=== PATIENT | female | born 1955 | race Caucasian/White ===

== ENCOUNTER 2021-02-16 07:29 | Outpatient (REF) | payer MEDICARE, OTHER, SELFPAY ==
[2021-02-16 07:43] LABS: MANUAL DIFF FLAG NO
[2021-02-16 07:58] LABS: Hematocrit 42.2 % (37-47); Hemoglobin 14.1 g/dl (12.0-16.0); Lymphocytes Absolute Auto 1.2 X10*3/uL (1.2-4.9); Lymphocytes Percent Auto 29.3 % (20-40); Mean Corpuscular HGB Conc 33.4 g/dl (31.0-35.0); Mean Corpuscular Hemoglobin 30.1 pg (27.0-33.0); Mean Corpuscular Volume 90.2 fL (80-98); Mean Platelet Volume 8.7 fL (9.4-12.3); Monocytes Absolute Auto 0.4 X10*3/uL (0.1-1.2); Monocytes Percent Auto 10.3 % (2-11); Neutrophils Absolute Auto 2.4 X10*3/uL (2.0-8.3); Neutrophils Percent Auto 58.4 % (45-73); Platelet Count 337 X10*3/uL (160-400); Red Blood Count 4.68 X10*6/uL (4.20-5.50); White Blood Count 4.2 X10*3/uL (4.8-10.8)
[2021-02-16 08:22] LABS: Anion Gap 11 (12-20); Blood Urea Nitrogen 13 mg/dL (9-16); Calcium 9.5 mg/dL (8.4-10.2); Carbon Dioxide 27 mmol/L (22-29); Chloride 106 mmol/L (96-108); Cholesterol 222 mg/dL; Estimated Glomerular Filt Rate > 60; Glucose Fasting 102 mg/dL (60-99); HDL Cholesterol 85 mg/dL; LDL Cholesterol Calculated 126 mg/dl; Sodium 140 mmol/L (135-145); Triglycerides 57 mg/dL
[2021-02-16 08:43] LABS: Thyroid Stimulating Hormone 2.09 uIU/mL (0.32-4.0)
== END 2021-02-16 07:30 | disposition home or self-care (01) ==
LOC: HO.LAB 07:29
PROVIDERS: PCP Internal Medicine; Visit Provider Internal Medicine
DX: Z00.00 Encounter for general adult medical examination without abnormal findings (principal)
CPT/HCPCS: 36415; 80048; 80061; 84443; 85025

== ENCOUNTER 2025-01-04 07:58 | Outpatient (REF) | payer MEDICARE, OTHER, SELFPAY ==
--- OUTSIDE RECORDS SUMMARY | 2025-01-04 08:03 | XMS_ITS | Patient Health Record ---
Author Organization [facility] Address [address] [place] [address] Care Team Providers Care Commercial Or Institutional Cleaner Name Role Phone Diane MEYER, Adam Primary Care Provider Dom Claudio Unavailable [phone] Reason For Referral No Information Plan Of Treatment No Information Insurance Providers Payer Name Payer Address Payer Phone Subscriber Number Group Number Insured Name Patient Relationship to Insured Coverage Start Date Coverage End Date MEDICARE OF [place] [address] [place] [address] [id number] DAWNA HAYWOOD Self - patient is the insured [facility] [address] [place] [address] [id number] HAYWOODJEREMYDAWNA Self - patient is the insured Medical (General) History Medical History History ICD Code colonoscopy 06-06-2006 colon polyps history of an anal fissure Denies NM,DM,CVA,Lung disease,renal dise ase Surgical History Surgery Date(Month/Year) ear surgery
[2025-01-04 08:48] LABS: Hematocrit 42.6 % (37.0-47.0); Hemoglobin 14.1 g/dl (12.0-16.0); Mean Corpuscular HGB Conc 33.1 g/dl (31.0-35.0); Mean Corpuscular Hemoglobin 29.1 pg (27.0-33.0); Mean Corpuscular Volume 87.8 fL (80.0-98.0); NRBC Abs Auto 0.000 X10*3/uL (0.0-0.012); NRBC Pct Auto 0.0 /100WBC (0.0-0.2); Platelet Count 313 X10*3/uL (160-400); Red Blood Count 4.85 X10*6/uL (4.20-5.50); White Blood Count 4.5 X10*3/uL (4.8-10.8)
[2025-01-04 08:49] LABS: Hemoglobin A1C 142.2630 umol/L; Total Hemoglobin (HGBA1C) 3699.0592 umol/L
[2025-01-04 09:27] LABS: Alanine Aminotransferase 17 U/L (0-31); Albumin Level 4.7 g/dL (3.5-5.0); Alkaline Phosphatase 48 U/L (39-117); Anion Gap 14 (12-20); Aspartate Amino Transferase 25 U/L (5-31); Blood Urea Nitrogen 14 mg/dL (9-16); Calcium 9.2 mg/dL (8.4-10.2); Carbon Dioxide 24 mmol/L (22-29); Chloride 108 mmol/L (96-108); Cholesterol 239 mg/dL (<200); Estimated Glomerular Filt Rate > 60; HDL Cholesterol 79 mg/dL (>40); Potassium 4.1 mmol/L (3.3-5.1); Sodium 142 mmol/L (135-145); Total Protein 7.7 g/dL (6.5-8.0); Triglycerides 61 mg/dL (<150)
== END 2025-01-04 07:59 | disposition home or self-care (01) ==
LOC: HO.LAB 07:58
PROVIDERS: PCP Physician Assistant; Visit Provider Physician Assistant
DX: R73.01 Impaired fasting glucose (principal); E78.9 Disorder of lipoprotein metabolism, unspecified
CPT/HCPCS: 36415; 80053; 80061; 83036; 85027

== ENCOUNTER 2025-01-18 12:44 | Outpatient (AMB) | payer MEDICARE, OTHER, SELFPAY ==
--- NOTE | 2025-01-18 12:47 | A.OFFPC_ITS ---
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 Transferring care from Dr Contreras. Medical records have been requested and have received. Silk Screen Printing Racker Required: No Tablet Technician: Present Accompanied by: Spouse Allergies No Known Allergies Allergy (Verified 01/18/25 13:07) Medication List - Last Reconciled 01/18/25 by Mario Harrison PA-C No Known Home Meds Tobacco use date assessed: 01/18/25 Fall risk assessment: No Falls in past year Last assessed Fall Risk: 01/18/25 Dental Screening Dental Screen Date: 01/18/25 Did you have a dental visit in the last 12 months?: Yes Did you have a dental problem in the last 6 months where you did not have access to dental care?: No Was dental information given to patient?: Patient has dentist 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 Previous PCP is Dr. Contreras though was not seen since 2019. The patient has a history of borderline high cholesterol, with recent lab results showing a cholesterol level of 239 mg/dL, which is considered borderline high. She has been advised to modify her diet to manage cholesterol levels. Borderline hyperlipidemia: The patient also has borderline diabetes, with a fasting blood sugar of 91 mg/dL and an A1c of 5.7%, indicating a pre-diabetic state. She has been advised to monitor her sugar intake, particularly from candies. Memory impairment: There are concerns about memory impairment, although the patient does not report significant issues herself. Family members have expressed concern about her losing her train of thought , decreased interest and engagement. PLAN: referral to a neurologist for further evaluation, including a brain MRI, has been planned. Former smoker: The patient has a history of smoking but quit over two years ago. She has not reported any withdrawal symptoms or significant changes since quitting. Hearing impairment is noted in one ear, and she has been receiving annual ear cleanings from an ENT specialist. Laboratory Tests 01/04/25 08:16 RBC 4.85 Creatinine 0.90 Cholesterol 239 H LDL Cholesterol, C alc 148 H PFSH Surgical History Sebaceous cyst of eyelid History of tonsillectomy History of ear surgery Family History Father Esophageal cancer Mother Lung cancer Social History Housing: House Alcohol intake: never Patient Tobacco Use Status: Never used Tobacco Years Smoked: 30+ e-Cigarette/Vaping Use: Never Used Second Hand Smoke Exposure: No service: No Current occupational status: retired Cognitive needs: No Hearing needs: No Vision needs: Yes (Glasses) Questionnaire PHQ-9 Over the last 2 weeks, how often have you been bothered by any of the following problems? 1. Little interest or pleasure in doing things: not at all 2. Feeling down, depressed, or hopeless: not at all 3. Trouble falling or staying asleep, or sleeping too much: not at all 4. Feeling tired or having little energy: not at all 5. Poor appetite or overeating: not at all 6. Feeling bad about yourself - or that you are a failure or have let yourself or your family down: not at all 7. Trouble concentrating on things, such as reading the newspaper or watching television: not at all 8. Moving or speaking so slowly that other people could have noticed. Or the opposite - being so fidgety or restless that you have been moving around a lot more than usual: not at all 9. Thoughts that you would be better off or of hurting yourself in some way: not at all Total score: 0 Depression Screening Interpretation: Negative Depression Screening Done: Yes 73099 - PHQ-9 Billing: Yes Source: Developed by Drs. Dom Sepulveda, Pilar Horne, Rohit Goncalves and colleagues, with an educational nolvia from [employer]. Thrive Questionnaire Date Thrive assessed: 01/18/25 I am a: Patient What is your living situation today?: I have a steady place to live Within the past 12 months, did the food you bought not last and you didn't have the money to get more?: Never true Within the past 12 months, did you worry whether your food would run out before you got money to buy more?: Never true Do you have trouble paying for medicines?: No Do you have trouble getting transportation to medical appointments?: No Do you have trouble paying your heating and electricity bill?: No Do you have trouble taking care of your child, family member or friend?: No Do you have trouble with day-to-day activities such as bathing, preparing meals, shopping, managing finances, etc.?: No Are you currently unemployed and looking for a job?: No Are you interested in more education?: No Please select the resources that you would like help with: None Currently or been in a relationship where the following occur: No concerns reported THRIVE Score: 0 AUDIT C Alcohol Use Questionnaire (AUDIT-C) 1. How often do you have a drink containing alcohol?: Never Total Score: 0 BRENDA-7 AMB Questionnaire BRENDA-7 Date BRENDA - 7 assessed: 01/18/25 Feeling nervous, anxious, or on edge: 0 = Not at all Not being able to stop or control worryin = Not at all Worrying too much about different things: 0 = Not at all Trouble relaxin = Not at all Being so restless that it is hard to sit still: 0 = Not at all Becoming easily annoyed or irritable: 0 = Not at all Feeling afraid as if something awful might happen: 0 = Not at all Total BRENDA-7 score (0-4 normal; 5-9 mild; 10-14 moderate; 15-21 severe): 0 Source: Developed by Drs. Dom Sepulveda, Pilar Horne, Rohit Goncalves and colleagues, with an educational nolvia from [employer]. BRENDA-7 Assessment Billing BRENDA-7 Assessment Tool: BRENDA-7 Assessment 37254 Review of Systems Const Denies headache(s) Eyes Denies loss of vision ENT Denies vertigo, Denies dizziness, Denies headache(s) and Denies sore throat Card Denies chest pain, Denies leg edema and Denies lightheadedness Resp Denies cough, Denies hemoptysis and Denies wheezing GI Denies abdominal pain, Denies melena, Denies constipation, Denies diarrhea and Denies vomiting Denies urinary frequency, Denies dysuria and Denies urinary urgency Musc Denies arthralgias, Denies joint swelling, Denies numbness and Denies tingling Neuro Denies Abnormal speech present, Denies behavioral changes, Denies vertigo, Denies dizziness, Denies headache(s), Denies loss of vision, Denies memory loss, Denies numbness and Denies tingling Psych Denies anxiety, Denies behavioral changes, Denies depression, Denies memory loss and Denies panic attacks Clay/Lymph Denies easy bleeding and Denies easy bruising Aller/Immun Denies wheezing Physical exam (Primary Care) Vital Signs: Last Vital Signs Temp 97.5 F 01/18/25 12:50 Pulse 67 01/18/25 12:50 BP 120/66 01/18/25 12:50 Pulse Ox 99 01/18/25 12:50 Oxygen Delivery Method Room Air 01/18/25 12:50 BMI result Body Mass Index 21.3 Tobacco/Smoking Status: Tobacco use Status Tobacco use date assessed 01/18/25 01/18/25 12:59 Patient Tobacco Use Status Never used Tobacco 01/18/25 12:59 e-Cigarette/Vaping Use Never Used 01/18/25 12:59 PHQ-9: PHQ-9 Score PHQ-9: Total score 0 01/18/25 13:41 Depression Screening Interpretation: Negative Thrive Assessment: Date of Thrive Assessment Date Thrive assessed 01/18/25 01/18/25 12:59 Currently or been in a relationship where the following occur: No concerns reported Const General: healthy appearing, no acute distress, alert and awake Nutritional Appearance: well nourished Orientation/consciousness: oriented to person and oriented to place HENMT Ears: TM's normal bilaterally General nose exam: Normal nasal mucous membranes and turbinates present Eyes Conjunctivae: conjunctivae normal Sclerae: sclerae normal Pupils: Equal, round and reactive pupils present Neck Neck: Yes no lymphadenopathy and Yes no JVD Thyroid: Thyroid normal Carotids: no bruits Resp Effort & Inspection: normal respiratory effort and not tachypneic Auscultation: no crackles, no rales, no rhonchi and no wheezes Cardio Rate: regular rate Rhythm: regular rhythm Heart sounds: no murmurs and normal S1 and S2 GI Palpation (GI): Soft to palpation, nontender, no hepatomegaly and no splenomegaly Auscultation: normal bowel sounds Skin General skin exam: no rashes or lesions noted and dry skin Neuro General: oriented to person and oriented to place Cranial nerves: Yes Equal, round and reactive pupils present Speech: No Abnormal speech present Gait exam (Neuro): Normal gait present Motor exam (neuro): no tremor noted Extrem Right upper extremity: full ROM Left upper extremity: full ROM Right lower extremity: full ROM; no edema Left lower extremity: full ROM; no edema Psych Mental Status: mental status grossly normal Speech and movement: Normal speech and movement present Affect: normal affect Attitude: cooperative Thought process: Normal thought process present Immunizations pneumoc 20-elle conj-dip cr(PF) 0.5 mL IM syringe Performing Provider: Mario Harrison PA-C [facility] Administered by: EL Harvey on 01/18/25 13:39 Dose Route Admin Location Dispensed Lot Number Expiration Date ND Orthopedic Assistant 0.5 mL IM Left Deltoid 0.5 mL [id number] 01/10/26 [employer] Total Dispensed Waste 0.5 mL 0 % VIS Given Date VIS Provided VIS Publication Date 01/18/25 Single Vaccine 24 Eligibility Eligibility Date Funding Source Not [facility] Eligible 01/18/25 Private Coding Level of Care Code New Pt Level 4 (70340) Diagnoses Memory deficit R41.3 Former smoker Z87.891 Borderline high cholesterol E78.9 Elevated fasting blood sugar R73.01 Additional Codes BRENDA-7 Assessment Billing - BRENDA-7 Assessment Tool: BRENDA-7 Assessment 22103 ([id number]) PHQ-9 - 49989 - PHQ-9 Billing: Yes ([id number]) Assessment & Plan Assessment & Plan (1) Memory deficit: Code(s): R41.3 - Other amnesia Category: Medical Plan: A referral to a neurologist has been made for further evaluation of memory concerns, including a brain MRI to start workup. Patient is alert to person and place though not time. We did discuss the possibility of a dementia diagnosis and possibly starting Aricept though has been would like to hold off on starting medication until talking with the neurologist. (2) Former smoker: Code(s): Z87.891 - Personal history of nicotine dependence Category: Social Hx Plan: Patient is a former smoker, quit 3-4 years ago. She was smoking more than 50 years. Her former smoking history could be contributing to now her memory impairment ? vascular dementia picture We did discuss with family the lung cancer screening program though will hold off on this for now (3) Borderline high cholesterol: Code(s): E78.9 - Disorder of lipoprotein metabolism, unspecified Category: Medical Plan: The patient has been advised to modify her diet to manage her borderline high cholesterol, which was measured at 239 mg/dL. Dietary changes include reducing intake of fried and fatty foods. (4) Elevated fasting blood sugar: Code(s): R73.01 - Impaired fasting glucose Category: Medical Plan: The patient has been advised to monitor her sugar intake, particularly from candies, to manage her borderline diabetes, indicated by an A1c of 5.7%. Orders: Orders MM screening mammo BI 01/18/25 Z12.31 - Encounter for screening mammogram for malignant neoplasm of breast MR head/brain wo con 01/18/25 R41.3 - Other amnesia Pneumococcal 20 Immunization 01/18/25 R41.3 - Other amnesia, Z23 - Encounter for immunization Referrals Neurology Referral R41.3 - Other amnesia
[2025-01-18 12:50] VITALS: BP 120/66; PULSE 67; TEMP 36.4; O2SAT 99; BMI 21.3
--- OUTSIDE RECORDS SUMMARY | 2025-01-18 15:01 | XMS_ITS | Patient Health Record ---
Author Organization [facility] Address [address] [place] [address] Care Team Providers Care Combat Control Manager Name Role Phone Diane MEYER, Adam Primary Care Provider Dom Claudio Unavailable [phone] Reason For Referral No Information Plan Of Treatment No Information Insurance Providers Payer Name Payer Address Payer Phone Subscriber Number Group Number Insured Name Patient Relationship to Insured Coverage Start Date Coverage End Date MEDICARE OF [place] [address] [place] [address] [id number] DAWNA HAYWOOD Self - patient is the insured [facility] [address] [place] [address] [id number] HAYWOOD, DAWNA Self - patient is the insured Medical (General) History Medical History History ICD Code colonoscopy 06-06-2006 colon polyps history of an anal fissure Denies [place],DM,CVA,Lung disease,renal dise ase Surgical History Surgery Date(Month/Year) ear surgery
== END 2025-01-18 13:41 | disposition home or self-care (01) ==
PROVIDERS: PCP Physician Assistant; Visit Provider Physician Assistant
DX: R41.3 Other amnesia (principal); Z87.891 Personal history of nicotine dependence; E78.9 Disorder of lipoprotein metabolism, unspecified; R73.01 Impaired fasting glucose

== ENCOUNTER → 2025-01-18 12:44 | Outpatient (BNVA) | payer MEDICARE, OTHER, SELFPAY | PROVIDERS: PCP Physician Assistant; Visit Provider Physician Assistant | DX: R73.01 Impaired fasting glucose (principal); R41.3 Other amnesia; E78.9 Disorder of lipoprotein metabolism, unspecified; Z23 Encounter for immunization; Z87.891 Personal history of nicotine dependence | CPT/HCPCS: 90471; 90677; 96127; 99202 ==

== ENCOUNTER 2025-02-05 09:34 | Outpatient (REF) | payer MEDICARE, OTHER, SELFPAY ==
--- NOTE | ~2025-02-05 | MR_ITS ---
CLINICAL HISTORY: R41.3 - Other amnesia MR Brain without gadolinium Comparison: None provided Findings: No restricted diffusion. No intra-axial mass or hemorrhage. There is a 6.5 mm lesion in the right parietal white matter which demonstrates restricted diffusion. A small acute white matter infarct is not excluded. T2 weighted hyperintensities are seen in the periventricular and subcortical white matter most consistent with microvascular ischemia. No midline shift. No hydrocephalus. Vascular flow voids are intact. The orbits are normal. There is right-sided mastoiditis. No focal bone lesion. IMPRESSION: 1. Tiny focus of restricted diffusion in the right parietal white matter could represent a small acute infarct. 2. Microvascular changes. 3. Right-sided mastoiditis This document has been electronically signed by: Price Sharp MD on 02/05/2025 11:04:37
--- OUTSIDE RECORDS SUMMARY | 2025-02-05 09:39 | XMS_ITS | Patient Health Record ---
Author Organization [facility] Address [address] [place] [address] Care Team Providers Care Charge Histotechnologist Name Role Phone Diane MEYER, Adam Primary Care Provider Dom Claudio Unavailable [phone] Reason For Referral No Information Plan Of Treatment No Information Insurance Providers Payer Name Payer Address Payer Phone Subscriber Number Group Number Insured Name Patient Relationship to Insured Coverage Start Date Coverage End Date MEDICARE OF [place] [address] [place] [address] [id number] DAWNA HAYWOOD Self - patient is the insured [facility] [address] [place] [address] [id number] HAYWOODJEREMYDAWNA Self - patient is the insured Medical (General) History Medical History History ICD Code colonoscopy 06-06-2006 colon polyps history of an anal fissure Denies [place],DM,CVA,Lung disease,renal dise ase Surgical History Surgery Date(Month/Year) ear surgery
== END 2025-02-05 09:35 | disposition home or self-care (01) ==
LOC: HO.MRI 09:34
PROVIDERS: PCP Physician Assistant; Visit Provider Physician Assistant
DX: R41.3 Other amnesia (principal)
CPT/HCPCS: 70551

== ENCOUNTER 2025-03-03 13:46 | Outpatient (REF) | payer MEDICARE, OTHER, SELFPAY ==
--- NOTE | ~2025-03-03 | CT_ITS ---
EXAMINATION: CT HEAD WITHOUT CONTRAST CLINICAL INFORMATION: I63.9 - Cerebral infarction, unspecified COMPARISON: MRI February 05, 2025 TECHNIQUE: Contiguous axial imaging was performed from the skull base to vertex without intravenous administration of contrast. This CT examination was performed using dose optimization techniques as appropriate, variously including the following: *Automated exposure control *Adjustment of mA and/or kV according to patient size (this includes techniques or standardized protocols for targeted exams where dose is matched to indication/reason for exam; i.e. extremities or head) *Use of iterative reconstruction technique FINDINGS: There is no acute ischemic change. Multifocal periventricular hypodensities are present. There is no intracranial hemorrhage. There is no mass-effect or midline shift. Basal cisterns and ventricles are within normal limits for age/cerebral volume. Orbits are symmetrical and unremarkable. Paranasal sinuses and mastoid air cells are pneumatized. There are no bony abnormalities. CT/CT head/brain wo IV con IMPRESSION: No acute intracranial abnormality. Previously demonstrated acute infarct in the right posterior cerebellum and right parietal white matter is not clearly demonstrated on CT. Electronically signed by: Pedro Mendoza MD 03/03/2025 02:45 PM EDT
--- OUTSIDE RECORDS SUMMARY | 2025-03-03 17:41 | XMS_ITS | Patient Health Record ---
Author Organization [facility] Address [address] [place] [address] Care Team Providers Care Silver Solution Mixer Name Role Phone Diane MEYER, Adam Primary Care Provider Dom Claudio Unavailable [phone] Reason For Referral No Information Plan Of Treatment No Information Insurance Providers Payer Name Payer Address Payer Phone Subscriber Number Group Number Insured Name Patient Relationship to Insured Coverage Start Date Coverage End Date MEDICARE OF [place] [address] [facility] [place] [address] [id number] DAWNA HAYWOOD Self - patient is the insured [facility] [address] [place] [address] [id number] HAYWOODJEREMYDAWNA Self - patient is the insured Medical (General) History Medical History History ICD Code colonoscopy 06-06-2006 colon polyps history of an anal fissure Denies [place],DM,CVA,Lung disease,renal dise ase Surgical History Surgery Date(Month/Year) ear surgery
== END 2025-03-03 13:47 | disposition home or self-care (01) ==
LOC: HO.CT 13:46
PROVIDERS: PCP Physician Assistant; Visit Provider Physician Assistant
DX: I63.9 Cerebral infarction, unspecified (principal)
CPT/HCPCS: 70450

== ENCOUNTER → 2025-03-03 13:48 | Outpatient (BNV) | payer MEDICARE, OTHER, SELFPAY | PROVIDERS: PCP Physician Assistant; Visit Provider Radiology Diagnostic Radiology | DX: I63.9 Cerebral infarction, unspecified (principal) | CPT/HCPCS: 70450 ==

== ENCOUNTER 2025-03-30 11:14 | Outpatient (AMB) | payer MEDICARE, OTHER, SELFPAY ==
--- NOTE | 2025-03-30 11:15 | MHC.OFFVIS ---
Vital Signs 03/30/25 11:16 Height 5 ft 3.78 in Weight 124 lb 2 oz BMI 21.5 BP 128/80 Blood Pressure Location Rt brachial Position Sitting Pulse 73 Pulse Source Pulse Oximeter Pulse Oximetry (%) 98 Oxygen Delivery Method Room Air Intake Visit Reasons: INP - Amnesia Intake Note: Amnesia Weatherization Technician Required: No Accompanied by: Spouse Allergies No Known Allergies Allergy (Verified 03/30/25 11:16) HPI Comments Details: 69 y/o Female comes for evaluation of memory issues.Patient feels she is doing good -Noticed short term memory difficulties, difficulty comprehending sometimes, emotional, irritable . mood swings for past 1 year .she misplaces things around the house, frequently repeats herself, stopped using check books ( used to be very good at that ). stopped cooking , stopped taking care of the house, stopped driving many years ago. she requests her to do all the chores and shadows him . No hallucinations No fh/o dementia No head injury No fh/o dementia she has anxiety for past 1 year. [facility] Medical History (Updated 03/30/25 @ 11:46 by Genia Bernal MD) Primary progressive nonfluent aphasia Surgical History Sebaceous cyst of eyelid History of tonsillectomy History of ear surgery Family History Father Esophageal cancer Mother Lung cancer Social History Housing: House Alcohol intake: never Patient Tobacco Use Status: Never used Tobacco Years Smoked: 30+ e-Cigarette/Vaping Use: Never Used Second Hand Smoke Exposure: No service: No Current occupational status: retired Cognitive needs: No Hearing needs: No Vision needs: Yes (Glasses) Physical Exam Vital Signs: Last Vital Signs Pulse 73 03/30/25 11:16 BP 128/80 03/30/25 11:16 Pulse Ox 98 03/30/25 11:16 Oxygen Delivery Method Room Air 03/30/25 11:16 BMI result Body Mass Index 21.5 Orientation What is the (year) (season) (date) (day) (month)?: season Where are we (state) (county) (town or city) (hospital) (floor)?: state and hospital/clinic Registration Name of 3 unrelated objects clearly and slowly, then ask patient to repeat all 3 of them. (1st repeat determines score. Make sure they can repeat all three): object 1, object 2 and object 3 Language Ask the patient to 'take a piece of paper with their right hand' 'fold paper in half' 'place paper on floor': take paper in right hand, fold paper in half and place paper on floor Give patient a blank piece of paper & ask to write a sentence. Score if it contains a noun & verb.: sentence contains subject and verb Score Score: 10 Results Reviewed Results Reviewed: MRI Brain - 01/2025Tiny focus of restricted diffusion in the right parietal white matter could represent a small acute infarct. 2. Microvascular changes. 3. Right-sided mastoiditis Ct head NO acute intracranial abnormality. Previously demonstrated acute infarct in the right posterior cerebellum and right parietal white matter is not clearly demonstrated on CT. 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; F02.80 - Dementia in other diseases classified elsewhere, unspecified severity, without behavioral disturbance, psychotic disturbance, mood disturbance, and anxiety Category: Medical Plan Reviewed MRI Patient has 4 younger sisters Will consider genetic testing -possible an Aunt with dementia [facility] SPeech therapy memantine XR 7 mg wd Orders: Orders Homocysteine 03/30/25 F02.80 - Dementia in other diseases classified elsewhere, unspecified severity, without behavioral disturbance, psychotic disturbance, mood disturbance, and anxiety, 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 Vitamin B12 and Folate 03/30/25 F02.80 - Dementia in other diseases classified elsewhere, unspecified severity, without behavioral disturbance, psychotic disturbance, mood disturbance, and anxiety, 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 Comprehensive Met. Panel 03/30/25 F02.80 - Dementia in other diseases classified elsewhere, unspecified severity, without behavioral disturbance, psychotic disturbance, mood disturbance, and anxiety, 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 Erythrocyte Sedimentation Rate 03/30/25 F02.80 - Dementia in other diseases classified elsewhere, unspecified severity, without behavioral disturbance, psychotic disturbance, mood disturbance, and anxiety, 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 TSH reflex Free T4 03/30/25 F02.80 - Dementia in other diseases classified elsewhere, unspecified severity, without behavioral disturbance, psychotic disturbance, mood disturbance, and anxiety, 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 Complete Blood Count Auto Diff 03/30/25 F02.80 - Dementia in other diseases classified elsewhere, unspecified severity, without behavioral disturbance, psychotic disturbance, mood disturbance, and anxiety, 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 EEG Routine 03/30/25 F02.80 - Dementia in other diseases classified elsewhere, unspecified severity, without behavioral disturbance, psychotic disturbance, mood disturbance, and anxiety, 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
[2025-03-30 11:16] VITALS: BP 128/80; PULSE 73; O2SAT 98; BMI 21.5
--- OUTSIDE RECORDS SUMMARY | 2025-03-30 22:12 | XMS_ITS | Patient Health Record ---
Author Organization [facility] Address [address] [place] [address] Care Team Providers Care [employer] Manager Name Role Phone Diane MEYER, Adam Primary Care Provider Dom Claudio Unavailable [phone] Reason For Referral No Information Plan Of Treatment No Information Insurance Providers Payer Name Payer Address Payer Phone Subscriber Number Group Number Insured Name Patient Relationship to Insured Coverage Start Date Coverage End Date MEDICARE OF [place] [address] [place] [address] [phone] [id number] DAWNA HAYWOOD Self - patient is the insured [facility] [address] [place] [phone] [id number] Self - patient is the insured Medical (General) History Medical History History ICD Code colonoscopy 06-06-2006 colon polyps history of an anal fissure Denies GA,DM,CVA,Lung disease,renal dise ase Surgical History Surgery Date(Month/Year) ear surgery
== END 2025-03-30 12:01 | disposition home or self-care (01) ==
LOC: HO.HSMS 11:15
PROVIDERS: PCP Physician Assistant; Visit Provider Psychiatry & Neurology Neurology
DX: G31.01 Pick's disease (principal); F02.80 Dementia in other diseases classified elsewhere, unspecified severity, without behavioral disturbance, psychotic disturbance, mood disturbance, and anxiety
CPT/HCPCS: 99213; G2211

== ENCOUNTER → 2025-03-30 11:14 | Outpatient (BNVA) | payer MEDICARE, OTHER, SELFPAY | PROVIDERS: PCP Physician Assistant; Visit Provider Psychiatry & Neurology Neurology | DX: G31.01 Pick's disease (principal); F02.80 Dementia in other diseases classified elsewhere, unspecified severity, without behavioral disturbance, psychotic disturbance, mood disturbance, and anxiety | CPT/HCPCS: 99212 ==